=== PATIENT | male | born 1950 | race Caucasian/White ===

== ENCOUNTER 2020-06-10 20:24 | Emergency (ER) | payer MEDICARE ==
[~2020-06-10] VITALS: Ht 177.8 cm; Wt 100.3 kg
[2020-06-10 20:59] LABS: BASOPHILS % (AUTO) 1 % (0-1); EOSINOPHILS % (AUTO) 1 % (1-7); LYMPHOCYTES % (AUTO) 13 % (22-44); MEAN CORPUSCULAR HEMOGLOBIN 31.6 pg (27.5-34.5); MEAN CORPUSCULAR HGB CONC 33.8 g/dL (33.2-36.2); MEAN PLATELET VOLUME 7.4 fL (7.4-10.4); MONOCYTES % (AUTO) 9 % (2-9); NEUTROPHILS % (AUTO) 77 % (42-75); PLATELET COUNT 298 x10^3/uL (130-400); RED BLOOD COUNT 4.32 x10^6/uL (4.38-5.82)
[2020-06-10 21:08] LABS: ALANINE AMINOTRANSFERASE 30 U/L (12-78); ALBUMIN 3.4 g/dL (3.4-5.0); ANION GAP 8 mmol/L (5-15); CALCIUM 8.7 mg/dL (8.5-10.1); CHLORIDE 103 mmol/L (98-107); CREATININE 1.09 mg/dL (0.7-1.3)
[2020-06-10 21:10] LABS: MD NO
[2020-06-10 21:12] LABS: ALKALINE PHOSPHATASE 113 U/L (45-117); BILIRUBIN,TOTAL 1.8 mg/dL (0.2-1.0); TOTAL PROTEIN 7.5 g/dL (6.4-8.2); TROPONIN I < 0.015 ng/mL (0.000-0.045)
[2020-06-10] MEDS ORDERED: KETOROLAC 30 MG/1 ML IM ONE (22:00)
[2020-06-10] MEDS ORDERED: KETOROLAC 30 MG/1 ML ONE (22:25)
[2020-06-10 22:29] VITALS: BP 120/56
--- NOTE | 2020-06-10 22:42 | NUR ---
TASK RN: DC EDUCATION PROVIDED, PT DEMONSTRATES UNDERSTANDING. PT AMBULATED STEADILY TO DC WITH RN.
== END 2020-06-10 22:44 | disposition home or self-care (01) ==
LOC: ED 21:23
DX: S29.011A Strain of muscle and tendon of front wall of thorax, initial encounter (principal); R94.31 Abnormal electrocardiogram [ECG] [EKG]; X58.XXXA Exposure to other specified factors, initial encounter; Y93.89 Activity, other specified; Y92.89 Other specified places as the place of occurrence of the external cause; Y99.8 Other external cause status
CPT/HCPCS: 36415; 71046; 80053; 84484; 85025; 93005; 99285; J1885

== ENCOUNTER 2020-08-04 17:26 | Emergency (ER) | payer MEDICARE ==
[~2020-08-04] VITALS: Ht 175.3 cm; Wt 101.1 kg
[2020-08-04 17:32] VITALS: BP 115/79
--- NOTE | 2020-08-04 18:52 | NUR ---
PT TO ROOM, STEADY GAIT.
--- NOTE | 2020-08-04 19:00 | NUR ---
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 HE NOTED FACIAL SWELLING AND DIFFICULTING BREATHING AT 11-NOON. PT DENIES SOB, OR SWOLLEN TONGUE AT THIS TIME, MANAGING SECRETIONS WELL. PT HAS RIGHT EYE SWELLING WORSE THAN LEFT EYE SWELLING, SWOLLEN FOREHEAD AND CHEEKS. SOME RIGHT WRIST SWELLING NOTED WELL. DENIES PAIN, STATES MILDLY ITCHINESS.
== END 2020-08-04 19:42 | disposition home or self-care (01) ==
LOC: ED 19:17
DX: L30.9 Dermatitis, unspecified (principal); T78.49XA Other allergy, initial encounter
CPT/HCPCS: 99281; 99283